=== PATIENT | female | born 1965 | race Caucasian/White ===

== ENCOUNTER → 2016-06-19 | Outpatient (CLI) | payer OTHER ==
[~2016-06-19] MED LIST: ALBU0.08 INH; ALBUAER19 INH; AMPH20TA2 PO; AZEL0.15 NAE; CHOL20007 PO; CLR10 PO; DIAZ10TA PO; FLM4 PO; FLUT0.15 NAE; FRS/40 PO; GABA1CAP5 PO; HYDR25TA5 PO; LEVO112T4 PO; METH500T37 PO; MOME200A INH; MONT1TAB5 PO; NICO21DI12 TD; POLY335040 PO; POTA20TA13 PO; RIVA1TAB4 PO
--- NOTE | 2016-06-19 12:05 | DIAGNOSTIC IMAGING REPORT ---
RIGHT KNEE 1 OR 2 VIEWS ROUTINE CLINICAL HISTORY: M25.561 Right knee [id number] Right pain COMPARISON: None. DISCUSSION: Moderate degenerative change medial joint compartment. No evidence for acute bony pathology. No significant joint effusion. There is no evidence for soft tissue swelling. 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 No acute bony abnormality. Electronically signed by: Garo Gary M.D. 06/19/2016 12:03 PM
== END | disposition home or self-care (01) ==
LOC: C.RADBC 11:05
PROVIDERS: ATTEND Family Medicine
DX: M25.561 Pain in right knee (principal); E55.9 Vitamin D deficiency, unspecified; E72.11 Homocystinuria; I26.99 Other pulmonary embolism without acute cor pulmonale

== ENCOUNTER → 2016-09-28 | Outpatient (CLI) | payer OTHER ==
[2016-09-28 15:07] LABS: BASO % 0.5 %; BASO ABS # 0.06 K/uL (0-0.2); COMPLETE YES; EOS % 1.5 %; HEMATOCRIT 37.8 % (37-47); IG% 0.4 %; LYMPH % 14.6 %; LYMPH ABS # 1.65 K/uL (1.2-3.4); MEAN CELL VOLUME 81.8 fL (80-100); MEAN CORPUSCULAR HEMOGLOBIN 26.2 pg (25-34); MEAN PLATELET VOLUME 9.3 fL (7.4-10.4); MONO % 7.4 %; NEUT % 75.6 %; PLATELET COUNT 621 K/uL (130-400); RED BLOOD COUNT 4.62 M/uL (4.2-5.4); WHITE BLOOD COUNT 11.29 K/uL (4.8-10.8)
[2016-09-28 15:34] LABS: ALB/GLOB RATIO 0.8 (0.9-2); ALKALINE PHOSPHATASE 98 U/L (45-117); ALT/SGPT 31 U/L (12-78); AST/SGOT 24 U/L (15-37); BLOOD UREA NITROGEN 15 mg/dl (7-18); BUN/CREATININE RATIO 15.3 (10-20); CALCIUM 9.1 mg/dl (8.5-10.1); CARBON DIOXIDE 39 mmol/L (21-32); CHLORIDE 86 mmol/L (98-107); GLUCOSE 167 mg/dl (70-99); SODIUM 132 mmol/L (136-145)
[2016-09-28 15:38] LABS: POTASSIUM 2.5 mmol/L (3.5-5.1)
[2016-09-29 06:20] LABS: ESTIMATED AVERAGE GLUCOSE 206 mg/dl; HA1C FLAG Normal (Normal)
== END | disposition home or self-care (01) ==
LOC: C.LAB1850 14:17
PROVIDERS: ATTEND Family Medicine
DX: R73.09 Other abnormal glucose (principal); E03.9 Hypothyroidism, unspecified; E53.8 Deficiency of other specified B group vitamins; I51.9 Heart disease, unspecified

== ENCOUNTER → 2016-11-06 | Outpatient (CLI) | payer OTHER ==
--- NOTE | 2016-11-06 13:49 | DIAGNOSTIC IMAGING REPORT ---
CHEST 2 VIEWS ROUTINE CLINICAL HISTORY: R05 [id number] dyspnea COMPARISON STUDY: 04/24/2016 FINDINGS: Platelike atelectasis both lung bases. Lungs otherwise appear clear. No evidence for cardiac enlargement. Several old healed rib fractures. IMPRESSION: Platelike atelectasis lung bases. Otherwise negative exam Electronically signed by: Garo Gary M.D. 11/06/2016 1:48 PM Dictated Date/Time: 11/06/2016 1:47 PM
[2016-11-06 15:57] LABS: BASO % 0.5 %; BASO ABS # 0.08 K/uL (0-0.2); COMPLETE YES; EOS % 1.1 %; HEMATOCRIT 40.1 % (37-47); IG% 0.4 %; LYMPH % 14.1 %; LYMPH ABS # 2.36 K/uL (1.2-3.4); MEAN CELL VOLUME 81.2 fL (80-100); MEAN CORPUSCULAR HEMOGLOBIN 24.5 pg (25-34); MEAN CORPUSCULAR HGB CONC 30.2 g/dl (32-36); MEAN PLATELET VOLUME 9.5 fL (7.4-10.4); MONO % 3.7 %; NEUT % 80.2 %; PLATELET COUNT 600 K/uL (130-400); RED BLOOD COUNT 4.94 M/uL (4.2-5.4)
[2016-11-06 16:06] LABS: ALT/SGPT 42 U/L (12-78); AST/SGOT 28 U/L (15-37); BLOOD UREA NITROGEN 22 mg/dl (7-18); BUN/CREATININE RATIO 14.8 (10-20); CALCIUM 8.3 mg/dl (8.5-10.1); CARBON DIOXIDE 34 mmol/L (21-32); CHLORIDE 85 mmol/L (98-107); GLUCOSE 316 mg/dl (70-99); POTASSIUM 3.3 mmol/L (3.5-5.1); SODIUM 130 mmol/L (136-145)
[2016-11-06 16:10] LABS: ALB/GLOB RATIO 0.8 (0.9-2); ALKALINE PHOSPHATASE 127 U/L (45-117)
[2016-11-06 16:17] LABS: BETA-HYDROXYBUTYRATE 1.73 mg/dL (0.2-2.81)
== END | disposition home or self-care (01) ==
LOC: C.RAD1850 12:24
PROVIDERS: ATTEND Physician Assistant
DX: R05 Cough (principal); K62.5 Hemorrhage of anus and rectum; N92.6 Irregular menstruation, unspecified; E03.9 Hypothyroidism, unspecified; R60.9 Edema, unspecified; J98.11 Atelectasis

== ENCOUNTER → 2016-11-07 | Outpatient (CLI) | payer OTHER | END | disposition home or self-care (01) | LOC: C.LABSPEC 16:57 | PROVIDERS: ATTEND Nurse Practitioner Adult Health | DX: N39.0 Urinary tract infection, site not specified (principal) ==

== ENCOUNTER → 2016-11-28 | Outpatient (CLI) | payer OTHER ==
[2016-11-28 19:00] LABS: ALT/SGPT 27 U/L (12-78); AST/SGOT 15 U/L (15-37); BLOOD UREA NITROGEN 18 mg/dl (7-18); BUN/CREATININE RATIO 18.4 (10-20); CALCIUM 9.4 mg/dl (8.5-10.1); CARBON DIOXIDE 36 mmol/L (21-32); CHLORIDE 90 mmol/L (98-107); GLUCOSE 113 mg/dl (70-99); MAGNESIUM 1.7 mg/dl (1.8-2.4); SODIUM 135 mmol/L (136-145)
[2016-11-28 19:02] LABS: ALB/GLOB RATIO 0.8 (0.9-2); ALKALINE PHOSPHATASE 82 U/L (45-117)
[2016-12-06 20:34] LABS: ILGF1 Z SCORE FEMALE -0.4 SD (-2.0 - +2.0); INSULIN LIKE GROWTH FACTOR-I 118 ng/mL (50-317)
== END | disposition home or self-care (01) ==
LOC: C.LABBFT 11:13
PROVIDERS: ATTEND Internal Medicine Endocrinology, Diabetes & Metabolism
DX: N39.0 Urinary tract infection, site not specified (principal); R39.9 Unspecified symptoms and signs involving the genitourinary system; E11.65 Type 2 diabetes mellitus with hyperglycemia; E66.01 Morbid (severe) obesity due to excess calories; R63.5 Abnormal weight gain

== ENCOUNTER → 2017-01-01 | Outpatient (CLI) | payer OTHER ==
[2017-01-01 13:43] LABS: ESTIMATED AVERAGE GLUCOSE 157 mg/dl; HA1C FLAG Normal (Normal)
[2017-01-01 14:00] LABS: ALT/SGPT 28 U/L (12-78); AST/SGOT 23 U/L (15-37); BLOOD UREA NITROGEN 23 mg/dl (7-18); BUN/CREATININE RATIO 20.6 (10-20); CALCIUM 10.2 mg/dl (8.5-10.1); CARBON DIOXIDE 39 mmol/L (21-32); CHLORIDE 90 mmol/L (98-107); GLUCOSE 113 mg/dl (70-99); POTASSIUM 3.3 mmol/L (3.5-5.1); SODIUM 135 mmol/L (136-145)
[2017-01-01 14:08] LABS: ALB/GLOB RATIO 0.9 (0.9-2); ALKALINE PHOSPHATASE 86 U/L (45-117); CHOLESTEROL 175 mg/dl (0-200); CHOLESTEROL/HDL RATIO 2.2; HDL CHOLESTEROL 79 mg/dl; LDL CHOLESTEROL CALCULATED 77 mg/dl; TRIGLYCERIDES 97 mg/dl (0-150); VERY LOW DENSITY LIPOPROT CALC 19 mg/dl
== END | disposition home or self-care (01) ==
LOC: C.LAB1850 12:25
PROVIDERS: ATTEND Internal Medicine Endocrinology, Diabetes & Metabolism
DX: E11.65 Type 2 diabetes mellitus with hyperglycemia (principal)